=== PATIENT | female | born 1955 | race Caucasian/White ===

== ENCOUNTER → 2019-02-15 | Outpatient (CLI) | payer BC ==
[~2019-02-15] MED LIST: ASPI81TA45 PO; LISI2.5T PO; LISI5TAB7 PO; MELO15TA24 PO; MELO7.5T31 PO; OXYC5CAP2 PO; TRAM50TA2 PO
[2019-02-15 11:00] LABS: BASOPHILS # (AUTO) 0.03 x10^3/uL (0-0.1); BASOPHILS % (AUTO) 1 % (0-1); EOSINOPHILS # (AUTO) 0.18 x10^3/uL (0-0.4); EOSINOPHILS % (AUTO) 3 % (1-7); LYMPHOCYTES % (AUTO) 33 % (22-44); MD NO; MEAN CORPUSCULAR HEMOGLOBIN 28.9 pg (27.0-34.8); MEAN CORPUSCULAR HGB CONC 32.6 g/dL (32.4-35.8); MEAN CORPUSCULAR VOLUME 88.8 fL (80-100); MEAN PLATELET VOLUME 9.4 fL (7.4-10.4); MONOCYTES % (AUTO) 9 % (2-9); NEUTROPHILS # (AUTO) 3.76 x10^3/uL (1.8-6.8); NEUTROPHILS % (AUTO) 56 % (42-75); PLATELET COUNT 280 x10^3/uL (130-400); RED CELL DISTRIBUTION WIDTH 13.9 % (9.6-15.2)
[2019-02-15 11:09] LABS: ALANINE AMINOTRANSFERASE 26 U/L (12-78); ALBUMIN 4.2 g/dL (3.4-5.0); ANION GAP 6 mmol/L (5-15); CALCIUM 9.3 mg/dL (8.5-10.1); CHLORIDE 113 mmol/L (98-107); CREATININE 0.68 mg/dL (0.55-1.02)
[2019-02-15 11:11] LABS: ALKALINE PHOSPHATASE 91 U/L (45-117); BILIRUBIN,TOTAL 0.5 mg/dL (0.2-1.0); TOTAL PROTEIN 7.7 g/dL (6.4-8.2)
[2019-02-15 11:12] LABS: INTERNATIONAL NORMALIZED RATIO 0.98 (0.93-1.1); PROTHROMBIN TIME 10.3 Seconds (9.6-11.5)
[2019-02-16 22:49] LABS: HEMOGLOBIN A1C 5.4 % (4.2-6.3)
== END | disposition home or self-care (01) ==
LOC: STAR 09:46
PROVIDERS: ATTEND Orthopaedic Surgery
DX: M16.12 Unilateral primary osteoarthritis, left hip (principal); M25.552 Pain in left hip; Z87.891 Personal history of nicotine dependence; Z82.49 Family history of ischemic heart disease and other diseases of the circulatory system; Z91.048 Other nonmedicinal substance allergy status; Z96.642 Presence of left artificial hip joint
CPT/HCPCS: 36415; 80053; 83036; 85025; 85610; 85730; 87081; 93005

== ENCOUNTER 2019-02-23 08:05 | Inpatient (IN) | payer BC ==
[~2019-02-23] VITALS: Ht 160 cm; Wt 95.0 kg
[~2019-02-23 08:05] MED LIST changes: +EPINEPHRINE 1 MG/ML, 1ML ONE; +KETOROLAC 60 MG/2 ML ONE; +ROPIvacaine/PF 0.5%, 30 ML ONE; +SODIUM CHLORIDE 0.9% 50 ML ONE; +TRANEXAMIC ACID 100 MG/ML, 10ML ONE; +VANCOMYCIN 1,000 MG ONE
[2019-02-23] MEDS ORDERED: LACTATED RINGERS 1,000 ML IV SCH (08:51)
[2019-02-23] MEDS ORDERED: ACETAMINOPHEN 500 MG TABLET ONE (08:54)
[2019-02-23] MEDS ORDERED: GABAPENTIN 300 MG CAPSULE ONE (08:54)
[2019-02-23] MEDS ORDERED: MEPERIDINE/PF 25MG/ML,1ML IVPush PRN (09:00)
[2019-02-23] MEDS ORDERED: PROMETHAZINE 25 MG/ML, 1ML IV PRN (09:00)
[2019-02-23] MEDS ORDERED: OXYcodone 5 MG/5 ML ORAL.SOL UDC PO PRN (09:00)
[2019-02-23] MEDS ORDERED: GABAPENTIN 300 MG CAPSULE PO ONE (09:00)
[2019-02-23] MEDS ORDERED: EPHEDRINE 50 MG/ML, 1ML IVPush PRN (09:00)
[2019-02-23] MEDS ORDERED: hydrALAzine 20 MG/ML, 1ML IV PRN (09:00)
[2019-02-23] MEDS ORDERED: LABETALOL 5MG/ML, 20ML IV PRN (09:00)
[2019-02-23] MEDS ORDERED: ACETAMINOPHEN 500 MG TABLET PO ONE (09:00)
[2019-02-23] MEDS ORDERED: ONDANSETRON 2MG/ML, 2ML IV PRN ×2 (09:00→10:00)
[2019-02-23] MEDS ORDERED: MIDAZOLAM 1 MG/ML, 2ML ONE (09:07)
[2019-02-23] MEDS ORDERED: FENTANYL PF 250 MCG/5ML ONE (09:07)
[2019-02-23] MEDS ORDERED: ONDANSETRON 2MG/ML, 2ML ONE ×2 (09:29→10:24)
[2019-02-23] MEDS ORDERED: LIDOCAINE GEL 2%, 5ML ONE (09:55)
[2019-02-23] MEDS ORDERED: LIDOCAINE-MPF 2% ,5ML ONE (09:55)
[2019-02-23] MEDS ORDERED: PROPOFOL 10 MG/ML, 20ML ONE (09:55)
[2019-02-23] MEDS ORDERED: DEXAMETHASONE 4 MG/ML, 1ML ONE ×2 (09:56)
[2019-02-23] MEDS ORDERED: CEFAZOLIN 1,000 MG ONE ×2 (09:56)
[2019-02-23] MEDS ORDERED: SODIUM CHLORIDE 0.9% PF 10ML ONE (09:56)
[2019-02-23] MEDS ORDERED: SUCCINYLCHOLINE 20 MG/ML, 10ML ONE (09:56)
[2019-02-23] MEDS ORDERED: PHENYLEPHRINE 10 MG/ML ONE (09:58)
[2019-02-23] MEDS ORDERED: OXYcodone IR 5MG TABLET PO PRN (10:00)
[2019-02-23] MEDS ORDERED: HYDROcodone/APAP 5/325 TABLET PO PRN (10:00)
[2019-02-23] MEDS ORDERED: SCOPOLAMINE PATCH, 1.5MG PATCH.TD72 TD ONE (10:00)
[2019-02-23] MEDS ORDERED: ZOLPIDEM 5MG TABLET PO PRN (10:00)
[2019-02-23] MEDS ORDERED: MAGNESIUM HYDROXIDE 8%, 30ML UDC PO PRN (10:00)
[2019-02-23] MEDS ORDERED: ONDANSETRON 4 MG TABLET PO PRN (10:00)
[2019-02-23] MEDS ORDERED: SENNA/DOCUSATE TABLET PO PRN (10:00)
[2019-02-23] MEDS ORDERED: ACETAMINOPHEN 650 MG/20.3 ML UDC PO PRN (10:00)
[2019-02-23] MEDS ORDERED: BISACODYL 10 MG SUPP PR PRN (10:00)
[2019-02-23] MEDS ORDERED: DIPHENHYDRAMINE 50 MG CAPSULE PO PRN (10:00)
[2019-02-23] MEDS ORDERED: OXYcodone 5 MG/5 ML ORAL.SOL UDC ONE (11:16)
[2019-02-23] MEDS ORDERED: FENTANYL PF 100 MCG/2ML ONE (11:16)
[2019-02-23] MEDS: FENTANYL PF 100 MCG/2ML IV PRN ×2 (11:20→11:25)
[2019-02-23] MEDS ORDERED: HYDROmorphone 1 MG/ML, 1ML VIAL ONE ×2 (11:32→11:59)
[2019-02-23] MEDS: HYDROmorphone 2 MG/ML, 1ML IVPush PRN ×4 (11:35→12:13)
[2019-02-23 12:40] VITALS: BP 121/76
[2019-02-23] MEDS: NS + 20MEQ KCL 1,000 ML IV SCH (13:02)
[2019-02-23] MEDS: CEFAZOLIN PMX 2GM/50ML 50 ML IVPB SCH (18:01)
[2019-02-23] MEDS: ASPIRIN 81 MG TABLET EC PO SCH (18:01)
[2019-02-23 21:00] VITALS: BP 118/76
[2019-02-23] MEDS: DOCUSATE 100 MG CAPSULE PO SCH (21:22)
[2019-02-23 23:57] VITALS: BP 130/78
[2019-02-24] MEDS: NS + 20MEQ KCL 1,000 ML IV SCH (00:56)
[2019-02-24] MEDS: CEFAZOLIN PMX 2GM/50ML 50 ML IVPB SCH (01:44)
[2019-02-24 04:56] VITALS: BP 139/79
[2019-02-24] MEDS: ASPIRIN 81 MG TABLET EC PO SCH (05:29)
[2019-02-24] MEDS ORDERED: DEXAMETHASONE 4 MG/ML, 1ML IVPush SCH (06:00)
[2019-02-24 07:05] VITALS: BP 165/79
[2019-02-24] MEDS ORDERED: LISINOPRIL 5 MG TABLET PO SCH (09:00)
[2019-02-24] MEDS: DOCUSATE 100 MG CAPSULE PO SCH (09:15)
[2019-02-24] MEDS ORDERED: ASPI81TA45 PO (09:17)
[2019-02-24] MEDS ORDERED: MELO7.5T31 PO (09:20)
[2019-02-24] MEDS ORDERED: OXYC5CAP2 PO (09:20)
[2019-02-24] MEDS ORDERED: TRAM50TA2 PO (09:21)
== END 2019-02-24 10:47 | disposition home or self-care (01) | DRG 470 ==
LOC: ORIP 08:05 → 4NE 12:39 → DCLOUNGE 02-24 10:42
PROVIDERS: ADMIT Orthopaedic Surgery; ATTEND Orthopaedic Surgery
PROC: 0SRB06A Replacement of Left Hip Joint with Oxidized Zirconium on Polyethylene Synthetic Substitute, Uncemented, Open Approach (ICD-10-PCS; principal; 2019-02-23 10:30)
DX: M16.12 Unilateral primary osteoarthritis, left hip (principal); I10 Essential (primary) hypertension; Z87.891 Personal history of nicotine dependence
CPT/HCPCS: 36415; 72170; 73501; 76000; J3490; 85014; 85018; C1713; G0378; J0171; J0690; J1100; J1170; J1885; J2250; J2405; J2704; J2795; J3010; J3370; J3480; Q0162; C1776; J0330; J2370; J7120